=== PATIENT | female | born 1950 | race Two or more races ===

== ENCOUNTER 2023-06-08 06:31 | Day surgery (SDC) | payer OTHER ==
[2023-06-06 10:22] LABS: MEAN CELL VOLUME 86.3 fL (80.00-100.00); MEAN CORPUSCULAR HEMOGLOBIN 29.3 pg (27.00-32.0); PLATELET COUNT 290 K/uL (150-450); RED BLOOD COUNT 4.75 M/uL (4.00-6.00); RED CELL DISTRIBUTION WIDTH 14.4 % (11.5-14.5)
[2023-06-06 10:51] LABS: INR 0.98; PARTIAL THROMBOPLASTIN TIME 25.8 SECONDS (22.0-34.0); PROTHROMBIN TIME 10.3 SECONDS (9.0-11.5)
[2023-06-06 10:53] LABS: URINE APPEARANCE Clear; URINE BILIRRUBIN Negative (NEGATIVE); URINE BLOOD Small; URINE COLOR Yellow; URINE GLUCOSE Negative (NEGATIVE); URINE LEUKOCYTE Small; URINE NITRATE Negative; URINE PROTEIN Negative (NEGATIVE); URINE UROBILINOGEN 0.2 E.U./dl
[2023-06-06 10:56] LABS: URINE BACTERIA 81.8 uL (0.0-1933); URINE EPITHELIAL CELLS 8.6 uL (0.0-38.8); URINE RBC 28.1 uL (0.0-20.8); URINE WBC 13.9 uL (0.0-23.2)
[2023-06-06 10:59] LABS: ALBUMIN 3.9 gm/dL (3.4-5.0); CALCIUM 9.3 mg/dL (8.5-10.1); CREATININE SERUM 0.73 mg/dL (0.55-1.02); GFR 77.93; GLOBULINA 3.4 G/DL (2.4-3.5); POTASSIUM 4.31 mEq/L (3.5-5.1); TOTAL PROTEIN 7.3 gm/dL (6.4-8.2)
[~2023-06-08] VITALS: Ht 162.6 cm; Wt 61.7 kg
[~2023-06-08 06:31] MED LIST: PROTONIX40 MG PO; RANITIDINE PO; ZESTRIL2.5 MG PO; [UNRECOGNIZED DRUG - OTHER] PO
== END 2023-06-08 15:50 | disposition home or self-care (01) ==
LOC: CIR.AMB 06:31
PROVIDERS: ATTEND Surgery
DX: C50.811 Malignant neoplasm of overlapping sites of right female breast (principal); Z17.0 Estrogen receptor positive status [ER+]; R59.0 Localized enlarged lymph nodes
CPT/HCPCS: 19301; 38525; 19281; A9541; L8699